=== PATIENT | female | born 1980 | race Caucasian/White ===

== ENCOUNTER 2019-02-05 09:51 | Inpatient (IN) | payer OTHER ==
[~2019-02-05] VITALS: Ht 172.7 cm; Wt 95.0 kg
[2019-02-05 10:23] LABS: Basophils # (auto) 0 uL; Basophils % (auto) 0.2 % (0.0-2.0); Eosinophils # (auto) 0 uL; Eosinophils % (auto) 0.3 % (0.0-7.0); Hematocrit 35.7 % (36.0-46.0); Hemoglobin 11.4 g/dL (12.2-16.2); Lymphocytes # (auto) 1.5 uL; Mean Corpuscular Hemoglobin 27.2 pg (28.0-32.0); Monocytes # (auto) 0.4 uL; Monocytes % (auto) 3.2 % (0.0-12.0); Neutrophils # (auto) 11.3 uL; Neutrophils % (auto) 85.3 % (37.0-80.0); Platelet Count (auto) 265 10^3/uL (140-450); Red Blood Cells 4.19 10^6/uL (4.0-5.20); White Blood Cell 13.3 10^3/uL (4.4-10.8)
[2019-02-05 10:50] LABS: Albumin 3.4 g/dL (3.4-5.0); Calcium 8.7 mg/dL (8.5-10.1); Potassium 3.5 mmol/L (3.5-5.1)
[2019-02-05 10:51] LABS: Urine Bacteria FEW /hpf (None Seen); Urine Blood 1+ /uL (Negative); Urine Mucus FEW (None Seen); Urine Specific Gravity 1.018 (1.001-1.035); Urine WBC 9 /hpf (0 - 5)
[2019-02-05 10:56] LABS: BUN/Creatinine Ratio 12.9; Bilirubin, Total 0.3 mg/dL (0.2-1.0); Total Protein 7.6 g/dL (6.4-8.2)
[2019-02-05] MEDS ORDERED: ONDANSETRON HCL 4 MG/2 ML VIAL IV ONE (11:00)
[2019-02-05] MEDS ORDERED: SODIUM CHLORIDE 0.9% 1,000 ML IV ONE (11:00)
[2019-02-05] MEDS ORDERED: MORPHINE SULFATE 4 MG/ML SYR/VIAL IV ONE (11:00)
[2019-02-05] MEDS ORDERED: ALUM & MAG HYDROX-SIMETH LIQ(MAALOX) 30 ML PO ONE (12:00)
[2019-02-05] MEDS ORDERED: LIDOCAINE VISCOUS 2% 15ML UD PO ONE (12:00)
[2019-02-05] MEDS ORDERED: DONNATAL 5ml ORAL Elix (BELLADONNA ALK-PHENOBARB) PO ONE (12:00)
[2019-02-05] MEDS ORDERED: KETOROLAC TROMETH 15 mg/ml 1ML VL IV ONE (14:15)
[2019-02-05] MEDS ORDERED: NITROGLYCERIN 0.4 MG SL TAB SL PRN (15:30)
[2019-02-05] MEDS ORDERED: MORPHINE SULF INJ 2 MG/ML SYRINGE 1ML IV PRN (15:30)
[2019-02-05] MEDS ORDERED: cefTRIAXone 1GM/50ML D5W 50 ML IV ONE (15:30)
[2019-02-05] MEDS ORDERED: TEMAZEPAM 15 MG CAP PO PRN (15:30)
[2019-02-05] MEDS ORDERED: ACETAMINOPHEN 500 MG TAB PO PRN (15:30)
[2019-02-05] MEDS ORDERED: DEXTROSE (50%) 50ML SYRG IV PRN (15:30)
[2019-02-05] MEDS ORDERED: PROMETHAZINE HCL 25 MG/ML 1ML IV PRN (15:30)
[2019-02-05] MEDS: SODIUM CHLORIDE 0.9% 1,000 ML IV SCH (15:57)
[2019-02-05] MEDS: FAMOTIDINE (10MG/ML) 2ML VL IV SCH (15:57)
[2019-02-05] MEDS: ACCU-CHEK COMFORT CURVE STRIP VI SCH (18:05)
--- NOTE | 2019-02-05 19:10 | NUR ---
OPENING NOTE Received report from day shift RN. Patient is A&O X's 4 with no s/s of distress noted. Patient reports 6/10 pain. Will provide pain medication as prescribed. Educated patient on POC and to use call light when in need of assistance. Patient verbalized understanding. Bed is in lowest/locked position with side rails up X's 2 and call light is within reach of patient. Will continue to monitor for changes and round hourly/PRN.
[2019-02-05] MEDS: traMADol HCL 50 MG TAB PO PRN (19:49)
--- NOTE | 2019-02-05 20:09 | NUR ---
SPOKE WITH MD TAVAREZ New orders given. Will place patient NPO as ordered. Possible surgery tomorrow. Will order labs as ordered Patient is aware on POC
[2019-02-05] MEDS ORDERED: MANNITOL FTV 25% 12.5 GM/50 ML 50 ML IV ONE (20:15)
[2019-02-05 22:00] VITALS: BP 114/67
[2019-02-05] MEDS: KETOROLAC TROMETH 15 mg/ml 1ML VL IV PRN (22:07)
[2019-02-05] MEDS: metroNIDAZOLE 500MG/100ML 100 ML IV SCH (22:07)
[2019-02-06] MEDS: ACCU-CHEK COMFORT CURVE STRIP VI SCH ×3 (00:33→11:31)
[2019-02-06] MEDS: SODIUM CHLORIDE 0.9% 1,000 ML IV SCH ×3 (01:26→21:23)
[2019-02-06] MEDS: FAMOTIDINE (10MG/ML) 2ML VL IV SCH ×2 (03:27→15:22)
[2019-02-06 05:16] VITALS: BP 90/56
[2019-02-06] MEDS: metroNIDAZOLE 500MG/100ML 100 ML IV SCH ×3 (05:31→21:22)
--- NOTE | 2019-02-06 06:09 | NUR ---
SURGICAL PREP CHG wipes are at bedside. Educated patient on how to clean self with these wipes. Patient verbalized understanding. New gown provided. Educated patient that nose piercing must be removed before surgery. She said she will take it out in a little bit. Bag was provided for her to place belongings in. EKG was done. Patient did not sign consents at this time because it has not been explained to her yet. They are ready in hard chart to be signed.
[2019-02-06 06:30] LABS: Basophils # (auto) 0 uL; Basophils % (auto) 0.4 % (0.0-2.0); Eosinophils # (auto) 0.1 uL; Eosinophils % (auto) 1.8 % (0.0-7.0); Hematocrit 31.3 % (36.0-46.0); Hemoglobin 10.3 g/dL (12.2-16.2); Lymphocytes # (auto) 2.1 uL; Lymphocytes % (auto) 27.7 % (10.0-50.0); Mean Corpuscular Hemoglobin 28.2 pg (28.0-32.0); Mean Corpuscular Hgb Conc. 32.9 g/dL (32.0-36.0); Mean Corpuscular Volume 85.7 fL (80.0-100.0); Monocytes # (auto) 0.4 uL; Monocytes % (auto) 5.7 % (0.0-12.0); Neutrophils # (auto) 4.9 uL; Neutrophils % (auto) 64.4 % (37.0-80.0); Platelet Count (auto) 203 10^3/uL (140-450); Red Blood Cells 3.66 10^6/uL (4.0-5.20); Red Cell Distribution Width 15.3 % (11.8-14.3); White Blood Cell 7.7 10^3/uL (4.4-10.8)
[2019-02-06 06:32] LABS: INR 0.93 (0.9-1.15)
[2019-02-06 06:43] LABS: Albumin 2.9 g/dL (3.4-5.0); Calcium 7.8 mg/dL (8.5-10.1); Potassium 3.4 mmol/L (3.5-5.1)
[2019-02-06 06:47] LABS: Amylase 47 U/L (25-115); BUN/Creatinine Ratio 10.2; Bilirubin, Total 0.6 mg/dL (0.2-1.0); Lipase 36 U/L (73-393); Total Protein 6.5 g/dL (6.4-8.2)
--- NOTE | 2019-02-06 07:15 | NUR ---
Opening Shift Note Assumed care of patient, asleep but easily aroused. No S/S of distress/SOB. Will follow up with instructions on POC and to call for assist PRN, will continue to monitor for changes Q1hr and PRN.
--- NOTE | 2019-02-06 07:50 | NUR ---
NPO Patient is awake laying in bed. NPO maintained for HIDA scan and possible surgery today. Patient is aware.
[2019-02-06] MEDS: KETOROLAC TROMETH 15 mg/ml 1ML VL IV PRN ×3 (08:09→21:30)
--- NOTE | 2019-02-06 08:10 | NUR ---
Patient left unit in wheelchair for HIDA scan.
[2019-02-06 09:00] VITALS: BP 97/61
[2019-02-06] MEDS ORDERED: MORPHINE SULF INJ 2 MG/ML SYRINGE 1ML IV ONE (09:15)
[2019-02-06] MEDS ORDERED: MIDAZOLAM HCL 1MG/1ML-2 ML VIAL ONE (11:09)
[2019-02-06] MEDS ORDERED: ROCURONIUM 10MG/ML 10ML VIAL IV ONE (11:09)
[2019-02-06] MEDS ORDERED: LIDOCAINE 1% (LOCAL ANESTH.) PF 5ml SDV ONE (11:10)
--- NOTE | 2019-02-06 11:10 | NUR ---
Patient on unit.
[2019-02-06] MEDS: cefTRIAXone 1GM/50ML D5W 50 ML IV SCH (11:21)
--- NOTE | 2019-02-06 11:57 | NUR ---
Pre-Op Patient taken to pre-op for procedure. Consent to be signed.
[2019-02-06 13:00] VITALS: BP 95/57
[2019-02-06] MEDS ORDERED: SUCCINYLCHOLINE CHLORIDE 20 MG/ML 10ML VIAL IV ONE (13:12)
[2019-02-06] MEDS ORDERED: METOCLOPRAMIDE HCL 5MG/ml INJ 2ml VIAL ONE (13:17)
[2019-02-06] MEDS ORDERED: PROPOFOL 10 MG/ML 20 ML IV ONE (13:19)
[2019-02-06] MEDS ORDERED: fentaNYL CITRATE 100 MCG/2 ML VL ONE (13:37)
[2019-02-06] MEDS ORDERED: ONDANSETRON HCL 4 MG/2 ML VIAL IV ONE (13:45)
[2019-02-06] MEDS ORDERED: NALOXONE HCL 0.4 MG/ML VIAL IV PRN (13:45)
[2019-02-06] MEDS ORDERED: HYDROmorphone HCL 2 MG/ML VL IV PRN (13:45)
[2019-02-06] MEDS ORDERED: ePHEDrine SULFATE 50 MG/ML AMP IV PRN (13:45)
[2019-02-06] MEDS ORDERED: NEOSTIGMINE 1 MG/ML INJ (10mg/10ML VIAL) ONE (14:01)
[2019-02-06] MEDS ORDERED: GLYCOPYRROLATE 0.2 MG/ML 1ML VIAL ONE (14:01)
[2019-02-06] MEDS: HYDROmorphone HCL 2 MG/ML VL IV PRN ×2 (14:20→14:37)
--- NOTE | 2019-02-06 15:15 | NUR ---
Patient returned to room after having laparoscopic cholecystectomy done. Patient is awake and alert, complained of pain to abdomen. Abdominal binder in place, oxygen 2L via nasal canula, bed alarm on for safety. Patient encouraged to call for assistance before getting out of bed. Significant other at bedside.
[2019-02-06 16:54] VITALS: BP 100/56
--- NOTE | 2019-02-06 19:10 | NUR ---
Patient sitting up in bed uncomplaining. Care endorsed to hourly shift manager RN
--- NOTE | 2019-02-06 19:21 | NUR ---
OPENING NOTE Received report from day shift RN. Patient is A&O X's 4 with no s/s of distress. Educated patient on POC and to use call light when in need of assistance. Patient verbalized understanding. Patient has abdominal binder on. Abdominal incisions are C/D/I. Bed is in lowest/locked position with side rails up X's 2 and call light is within reach of patient. Will continue to monitor for changes and round hourly/PRN.
[2019-02-06 22:00] VITALS: BP 101/61
[2019-02-07] MEDS: KETOROLAC TROMETH 15 mg/ml 1ML VL IV PRN ×2 (04:34→22:57)
[2019-02-07] MEDS: FAMOTIDINE (10MG/ML) 2ML VL IV SCH ×2 (04:34→15:45)
[2019-02-07 05:04] VITALS: BP 108/66
[2019-02-07 05:50] LABS: Basophils # (auto) 0 uL; Basophils % (auto) 0.2 % (0.0-2.0); Eosinophils # (auto) 0.1 uL; Hematocrit 30.8 % (36.0-46.0); Hemoglobin 10.1 g/dL (12.2-16.2); Lymphocytes # (auto) 1.1 uL; Lymphocytes % (auto) 12.5 % (10.0-50.0); Mean Corpuscular Hemoglobin 28.3 pg (28.0-32.0); Mean Corpuscular Hgb Conc. 32.7 g/dL (32.0-36.0); Mean Corpuscular Volume 86.5 fL (80.0-100.0); Monocytes # (auto) 0.5 uL; Monocytes % (auto) 5.5 % (0.0-12.0); Neutrophils # (auto) 7.3 uL; Neutrophils % (auto) 80.8 % (37.0-80.0); Platelet Count (auto) 203 10^3/uL (140-450); Red Blood Cells 3.56 10^6/uL (4.0-5.20); Red Cell Distribution Width 15.5 % (11.8-14.3); White Blood Cell 9.1 10^3/uL (4.4-10.8)
[2019-02-07 05:58] LABS: Calcium 7.8 mg/dL (8.5-10.1); Potassium 3.5 mmol/L (3.5-5.1)
[2019-02-07 06:01] LABS: Albumin 2.7 g/dL (3.4-5.0); BUN/Creatinine Ratio 11.4
[2019-02-07] MEDS: metroNIDAZOLE 500MG/100ML 100 ML IV SCH (06:03)
[2019-02-07 06:04] LABS: Bilirubin, Total 0.6 mg/dL (0.2-1.0)
--- NOTE | 2019-02-07 07:39 | NUR ---
Opening Shift Note Assumed care of patient, awake and alert. No S/S of distress/SOB or pain. Instructed on POC and to call for assist PRN, will continue to monitor for changes Q1hr and PRN.
--- NOTE | 2019-02-07 07:45 | NUR ---
Dr. Clancy rounded on patient. To advance diet.
[2019-02-07] MEDS: cefTRIAXone 1GM/50ML D5W 50 ML IV SCH (08:48)
[2019-02-07] MEDS: SODIUM CHLORIDE 0.9% 1,000 ML IV SCH ×2 (08:49→17:26)
[2019-02-07 09:00] VITALS: BP 108/61
--- NOTE | 2019-02-07 11:30 | NUR ---
ESBL Urine Patient placed on isolation for ESBL in the urine.
[2019-02-07] MEDS ORDERED: ERTAPENEM SOD INJ 1 GM in SODIUM CHL 0.9% 50 ML IV ONE (12:15)
[2019-02-07 13:00] VITALS: BP 119/74
[2019-02-07] MEDS: traMADol HCL 50 MG TAB PO PRN (13:23)
--- NOTE | 2019-02-07 14:20 | NUR ---
Pain to right hand Patient complained of swelling and pain to right hand that goes up to shoulder. Hospitalist paged and order received to do U/S on right hand.
[2019-02-07 17:00] VITALS: BP 122/81
--- NOTE | 2019-02-07 19:25 | NUR ---
Closing note Patient sitting up in bed uncomplaining.
[2019-02-07 21:42] VITALS: BP 109/65
[2019-02-08] MEDS: FAMOTIDINE (10MG/ML) 2ML VL IV SCH (03:38)
--- NOTE | 2019-02-08 04:55 | NUR ---
ROUNDS PATIENT AWAKE AND ALERT, PATIENT AMBULATES TO RESTROOM AND NOW BACK IN BED SITTING UP, WATCHING TV, DENIES ANY PAIN OR DISCOMFORT. CALL LIGHT WITHIN REACH.
[2019-02-08 05:28] VITALS: BP 112/74
[2019-02-08 05:54] LABS: Basophils # (auto) 0 uL; Basophils % (auto) 0.4 % (0.0-2.0); Eosinophils # (auto) 0.2 uL; Eosinophils % (auto) 2.6 % (0.0-7.0); Hemoglobin 9.9 g/dL (12.2-16.2); Lymphocytes # (auto) 1.7 uL; Lymphocytes % (auto) 22.9 % (10.0-50.0); Mean Corpuscular Hemoglobin 28.4 pg (28.0-32.0); Mean Corpuscular Hgb Conc. 32.9 g/dL (32.0-36.0); Mean Corpuscular Volume 86.4 fL (80.0-100.0); Monocytes # (auto) 0.5 uL; Monocytes % (auto) 6.7 % (0.0-12.0); Neutrophils # (auto) 4.9 uL; Neutrophils % (auto) 67.4 % (37.0-80.0); Platelet Count (auto) 205 10^3/uL (140-450); Red Blood Cells 3.47 10^6/uL (4.0-5.20); Red Cell Distribution Width 15.4 % (11.8-14.3); White Blood Cell 7.3 10^3/uL (4.4-10.8)
[2019-02-08] MEDS: SODIUM CHLORIDE 0.9% 1,000 ML IV SCH ×2 (06:08→10:38)
[2019-02-08 06:17] LABS: Albumin 2.8 g/dL (3.4-5.0); BUN/Creatinine Ratio 11.1; Calcium 7.8 mg/dL (8.5-10.1); Potassium 3.6 mmol/L (3.5-5.1)
[2019-02-08 06:22] LABS: Bilirubin, Total 0.4 mg/dL (0.2-1.0); Total Protein 6.2 g/dL (6.4-8.2)
--- NOTE | 2019-02-08 07:15 | NUR ---
ENDORSED CARE TO DAY SHIFT RNPAUL
--- NOTE | 2019-02-08 07:30 | NUR ---
OPENING SHIFT NOTE RECEIVED REPORT FROM [facility] NURSE, ASSUMED CARE OF PATIENT. PATIENT IS A&OX4, AMBULATORY INDEPENDENTLY WITH A STEADY GAIT. PATIENT IS S/P BARB WITH DRESSING X3 TO ABD AND ABDOMINAL BINDER. C/O PAIN, 11/21, WILL MEDICATE PER SEP. BED IN LOW POSITION, BRAKES APPLIED, SIDE RAILS UP X2 AND CALL LIGHT WITHIN REACH. EDUCATED PATIENT PROPERTY SUPERVISOR LIGHT USE PRN AND POC, PATIENT VERBALIZED UNDERSTANDING. CONTINUING TO MONITOR Q1 HR AND PRN
[2019-02-08] MEDS: KETOROLAC TROMETH 15 mg/ml 1ML VL IV PRN ×2 (08:09→10:38)
[2019-02-08 09:42] VITALS: BP 121/74
[2019-02-08] MEDS ORDERED: ERTAPENEM SOD INJ 1 GM in SODIUM CHL 0.9% 50 ML IV SCH (10:00)
[2019-02-08] MEDS ORDERED: ENOXAPARIN SOD 40 MG/0.4 ML SYRINGE SC ONE (13:15)
[2019-02-08 14:59] VITALS: BP 121/74
--- NOTE | 2019-02-08 15:30 | NUR ---
IV removal IV DC'd with clean sterile technique, catheter fully intact. Pressure dressing applied to site. Patient tolerated well.
--- NOTE | 2019-02-08 15:37 | NUR ---
PATIENT DISCHARGED PATIENT DISCHARGED TO HOME, PATIENT REFUSED WHEELCHAIR AND AMBULATED FROM HOSPITAL WITH FAMILY. DENIES ANY PAIN OR DISTRESS AT THIS TIME.
[2019-02-08 15:38] VITALS: BP 112/72
[2019-02-09] MEDS ORDERED: ENOXAPARIN SOD 40 MG/0.4 ML SYRINGE SC SCH (10:00)
== END 2019-02-08 15:35 | disposition home or self-care (01) | DRG 418 ==
LOC: ER 09:51 → OVERFLOW 09:52 → WEST WING 18:42
PROVIDERS: ADMIT Internal Medicine; ATTEND Internal Medicine
PROC: 0FT44ZZ Resection of Gallbladder, Percutaneous Endoscopic Approach (ICD-10-PCS; principal; 2019-02-06 13:09)
DX: K80.00 Calculus of gallbladder with acute cholecystitis without obstruction (principal); N39.0 Urinary tract infection, site not specified; N20.0 Calculus of kidney; R73.9 Hyperglycemia, unspecified; B96.20 Unspecified Escherichia coli [E. coli] as the cause of diseases classified elsewhere; Z16.12 Extended spectrum beta lactamase (ESBL) resistance; I80.8 Phlebitis and thrombophlebitis of other sites; D72.829 Elevated white blood cell count, unspecified; E66.01 Morbid (severe) obesity due to excess calories; Z83.3 Family history of diabetes mellitus; Z82.0 Family history of epilepsy and other diseases of the nervous system; Z68.31 Body mass index [BMI] 31.0-31.9, adult; Z82.49 Family history of ischemic heart disease and other diseases of the circulatory system; Z79.899 Other long term (current) drug therapy
CPT/HCPCS: 36415; 74176; 76705; 78226; 80053; 81001; 81025; 82150; 82247; 82962; 83036; 83690; 85025; 85610; 85652; 85730; 86141; 86850; 86900; 86901; 87086; 87088; 87186; 93971; 96361; 96365; 96375; G0378; J0330; J0696; J1335; J2250; J2405; J2704; J3490

== ENCOUNTER 2019-03-26 18:28 | Emergency (ER) | payer OTHER ==
[~2019-03-26] VITALS: Ht 170.2 cm; Wt 79.4 kg
[2019-03-26] MEDS ORDERED: HYDROcodone-ACET 10/325MG TAB PO ONE (23:45)
[2019-03-26] MEDS ORDERED: BACLOFEN 10 MG TAB PO ONE (23:45)
[2019-03-27 00:04] VITALS: BP 128/91
== END 2019-03-27 01:18 | disposition home or self-care (01) ==
LOC: EDBD 18:28 → ER 18:28
DX: M62.838 Other muscle spasm (principal); M54.2 Cervicalgia; V49.59XA Passenger injured in collision with other motor vehicles in traffic accident, initial encounter; Y93.89 Activity, other specified; Y99.8 Other external cause status; Y92.89 Other specified places as the place of occurrence of the external cause
CPT/HCPCS: 73030

== ENCOUNTER → 2020-02-16 | Outpatient (CLI) | payer OTHER ==
[2020-02-16 08:40] LABS: Basophils # (auto) 0 10 ^3/uL (0-0.2); Basophils % (auto) 0.5 % (0.0-2.0); Eosinophils # (auto) 0.2 10 ^3/uL (0-0.8); Eosinophils % (auto) 2.7 % (0.0-7.0); Hematocrit 37.9 % (36.0-46.0); Hemoglobin 11.9 g/dL (12.2-16.2); Lymphocytes # (auto) 2.2 10 ^3/uL (0.4-5.4); Mean Corpuscular Hemoglobin 27.3 pg (28.0-32.0); Mean Corpuscular Hgb Conc. 31.4 g/dL (32.0-36.0); Mean Corpuscular Volume 86.9 fL (80.0-100.0); Monocytes # (auto) 0.5 10 ^3/uL (0-1.3); Monocytes % (auto) 6.6 % (0.0-12.0); Neutrophils # (auto) 5.1 10 ^3/uL (1.6-8.6); Neutrophils % (auto) 63.2 % (37.0-80.0); Platelet Count (auto) 220 10^3/uL (140-450); Red Blood Cells 4.36 10^6/uL (4.0-5.20); Red Cell Distribution Width 17.6 % (11.8-14.3)
[2020-02-16 08:44] LABS: Urine Bacteria MANY /hpf (None Seen); Urine Blood TRACE /uL (Negative); Urine Mucus FEW (None Seen); Urine Specific Gravity 1.022 (1.001-1.035); Urine WBC 44 /hpf (0 - 5)
[2020-02-16 11:24] LABS: Albumin 3.2 g/dL (3.4-5.0); BUN/Creatinine Ratio 23.1; Bilirubin, Total 0.4 mg/dL (0.2-1.0); Calcium 8.9 mg/dL (8.5-10.1)
== END | disposition home or self-care (01) ==
LOC: LAB 08:27
PROVIDERS: ATTEND Nurse Practitioner
DX: E78.5 Hyperlipidemia, unspecified (principal); I10 Essential (primary) hypertension; D64.9 Anemia, unspecified
CPT/HCPCS: 36415; 80053; 80061; 81001; 84443; 85025